=== PATIENT | male | born 1955 | race Caucasian/White ===

== ENCOUNTER 2017-08-13 07:02 | Observation (INO) | payer OTHER ==
[~2017-08-13] VITALS: Ht 177.8 cm; Wt 117.9 kg
[~2017-08-13 07:02] MED LIST: ASPIR 8181 MG PO; IBUPROFEN 800800 M1 PO; KEFLEX500 MG PO; PIOGLITAZONE15 MG PO; PROZAC20 MG PO; UNICOMPLEX M TA1 TA1 PO; VITAMIN B-12500 MCG PO; VITAMIN D2000 UNIT PO
[2017-08-13 07:13] VITALS: BP 174/78
[2017-08-13 07:55] LABS: HEMOGLOBIN 14.7 gm/dL (14.0-18.0); MCH 31.1 pg (26.0-34.0); MCHC 33.4 g/dL (28.0-37.0); MCV 93.3 fL (80.0-100.0); MPV 8.3 fl. (7.2-11.1); NUCLEATED RBCS 0 /100WBC; PLATELET COUNT* 207 thou/uL (150-400); RBC 4.71 mil/uL (4.50-6.00); RDW-CV 12.9 % (10.5-14.5); WBC 13.8 thou/uL (4.0-11.0)
[2017-08-13 08:00] LABS: ANION GAP 12 mmol/L (7-16); BUN 10 mg/dL (7-18); CALCIUM 8.7 mg/dL (8.5-10.1); CHLORIDE 102 mmol/L (98-107); CO2 25 mmol/L (21-32); CREATININE 0.8 mg/dL (0.6-1.3); GLUCOSE 195 mg/dL (70-99); POTASSIUM 3.7 mmol/L (3.5-5.1); SODIUM 139 mmol/L (136-145)
[2017-08-13 08:07] LABS: ALBUMIN 4.1 g/dL (3.4-5.0); ALKALINE PHOSPHATASE 80 U/L (46-116); LIPASE 86 U/L (73-393); SGOT 26 U/L (15-37); SGPT 41 U/L (30-65); TOTAL BILIRUBIN 0.5 mg/dL (<0.1-1.0); TOTAL PROTEIN 7.8 g/dL (6.4-8.2); TROPONIN-I LEVEL <0.06 ng/mL (<0.06)
[2017-08-13 08:31] LABS: ABSOLUTE LYMPHOCYTES 0.6 thou/uL (0.8-5.3); ABSOLUTE MONOCYTES 0.4 thou/uL (0.0-1.2); ABSOLUTE NEUTROPHILS 12.8 thou/uL (1.6-8.1); ANISOCYTOSIS 1+; PLATELET ESTIMATE ADEQUATE
[2017-08-13 08:32] LABS: POIKILOCYTOSIS 1+
[2017-08-13 09:20] LABS: URINE BILIRUBIN NEGATIVE (Negative); URINE BLOOD NEGATIVE (Negative); URINE CLARITY CLEAR; URINE COLOR YELLOW; URINE GLUCOSE-RANDOM 1+ (Negative); URINE KETONES NEGATIVE (Negative); URINE LEUKOCYTES-REFLEX NEGATIVE (Negative); URINE NITRITE-REFLEX NEGATIVE (Negative); URINE PROTEIN NEGATIVE (Negative); URINE SPECIFIC GRAVITY <= 1.005 (1.005-1.030); URINE UROBILINOGEN 0.2 E.U./dl (0.2-1.0)
[2017-08-13 12:10] VITALS: BP 155/80
[2017-08-13 12:35] VITALS: BP 152/84
[2017-08-13 14:22] VITALS: BP 152/84
--- NOTE | 2017-08-13 14:55 | EKG ---
[place] [address] ELECTROCARDIOGRAM REPORT Name: BRNEDA ROMEO Room: [address] IN .R.#: [id number] Admission: 08/13/17 Attend Phys: Regulo Rice, Discharge: Date of : 53 Report #: [id number] THIS REPORT FOR: //name// [facility] ED Test Date: 2017-08-13 Test Time: 08:00:44 Pat Name: BRENDA ROMEO Department: Room: Gender: Cardiac Technologist: Oz MANDUJANO : 1955 Requested By: Lion Rosario Order Number: [id number] MD: Osman Cooper Measurements Intervals [place] Rate: 62 P: 49 IA: 181 QRS: 65 QRSD: 106 T: 34 QT: 416 QTc: 423 Interpretive Statements Sinus rhythm No previous ECG available for comparison Electronically Signed On 08-13-2017 14:55:22 CDT by Osman Cooper [email or web address] <ELECTRONICALLY SIGNED> By: Osman Cooper MD, [facility] 08/13/17 1455 0800 08 Osman Cooper MD, FACC /EPI
--- NOTE | 2017-08-13 18:28 | NUR ---
ASSUMED CARE OF PATIENT AFTER TRANSFER FROM ED AT 1230. ALERT AND ORIENTED X4. ASSESSMENT COMPLETED AND CHARTED. VSS ON ROOM AIR. PATIENT HAS NO COMPLAINTS OF NAUSEA OR SOA. PATIENTS PAIN HAS BEEN MINIMAL AND DID NOT REQUIRE MEDICATION ON THIS UNIT. PATIENT LEFT FOR LAP RUY PROCEDURE AT 1440 AND RETURNED TO THE UNIT AT 1810. PATIENT IS ALERT AND ORIENTED X4 AND VSS ON ROOM AIR. PATIENT IS HAVING NO COMPLAINTS OF PAIN AT THIS TIME. RESTING COMFORTABLY IN BED AND A CLEAR LIQUID DINNER TRAY WAS DELIEVERED. CALL LIGHT IS WITHIN RECH AND NURSING WILL CONTINUE TO MONITOR.
[2017-08-13 20:20] VITALS: BP 110/69
[2017-08-13 23:46] VITALS: BP 132/71
[2017-08-14 03:37] VITALS: BP 134/68
[2017-08-14 03:52] LABS: HEMATOCRIT 38.4 % (42.0-52.0); MCH 30.7 pg (26.0-34.0); MPV 8.3 fl. (7.2-11.1); RBC 4.13 mil/uL (4.50-6.00); RDW-CV 12.8 % (10.5-14.5); WBC 11.1 thou/uL (4.0-11.0)
[2017-08-14 03:55] LABS: HEMOGLOBIN 12.7 gm/dL (14.0-18.0)
[2017-08-14 04:30] LABS: ALBUMIN 3.3 g/dL (3.4-5.0); CREATININE 0.7 mg/dL (0.6-1.3); POTASSIUM 4.1 mmol/L (3.5-5.1); TOTAL BILIRUBIN 0.6 mg/dL (<0.1-1.0); TOTAL PROTEIN 6.3 g/dL (6.4-8.2)
--- NOTE | 2017-08-14 05:17 | NUR ---
PATIENT ALERT AND ORIENTED X 4. VITALS STABLE. RA. CPAP AT HS, CONTINUOUS PULSE OX IN PLACE. RA. DENIES PAIN AND NAUSEA. TOLERATING CLEAR LIQUID DIET. WILL BE ADVANCED TO LOW FAT CARB CONTROL FOR BREAKFAST PER ORDER. FLUIDS INFUSING PER ORDER. VOIDING ADEQUATELY. UP INDEPENDENTLY. LAP SITES X 5. ONE SITE COVERED WITH A BANDAGE DUE TO SMALL AMOUNT OF DRAINAGE. OTHER SITES C/D/I. HOURLY ROUNDS. BED ALARM IN USE. NURSING WILL CONTINUE TO MONITOR.
[2017-08-14 08:15] VITALS: BP 133/65
[2017-08-14 13:34] VITALS: BP 133/65
[2017-08-14] MEDS ORDERED: HYDROCODON-ACE1 EAC7 PO (13:47)
[2017-08-14] MEDS ORDERED: PROTONIX40 M1 PO (13:49)
--- NOTE | 2017-08-14 14:26 | NUR ---
PATIENT DISCHARGED FROM UNIT AT 1415. ALERT AND ORIENTED X 4. VITAL SIGNS STABLE ON ROOM AIR. UP AD IAN. IV DISCONTINUED. DISCHARGE INSTRUCTIONS, MEDICATION INFORMATION, ANS SCRIPTS GIVEN TO PATIENT. LEFT WITH ALL BELONGINGS. PATIENT LEFT WITH VIA CAR.
[2017-08-14 14:36] VITALS: BP 133/65
--- NOTE | 2017-08-20 13:09 | CON ---
[address] [address] CONSULTATION Name: BRENDA ROMEO Room: [address] Noe Gutierrez#: [id number] Admission: 08/13/17 Attend Phys: Regulo Rice, Discharge: 08/14/17 Date of : 53 Report #: [id number] THIS REPORT FOR: //name// CC: Heath Rice DATE OF SERVICE: 08/13/2017 REASON FOR CONSULTATION: Cholecystitis. HISTORY OF PRESENT ILLNESS: This is a 62-year-old male with acute abdominal pain, which started at 10 p.m. last night. The patient reports that he ate a late dinner around 7:30 p.m. last night and by 10:00, he was having severe pain in the right upper quadrant, which was radiating to the mid abdominal region. He also started having dry heaving, which lasted until 4:30 a.m. The patient reports that he decided to come to the hospital as his pain was not resolving. He denies any lower GI symptoms as he denies hematochezia, melena, change in stool habits and caliber. He has had a recent colonoscopy within a year, which was significant for polyps. PAST MEDICAL HISTORY: Significant for history of open fracture of distal phalanx of the toe, obesity, depression, vitamin D deficiency, uvulectomy, left knee replacement, tonsillectomy, diabetes mellitus, C6 and C7 fusion. ALLERGIES: No known drug allergies. MEDICATIONS: Please refer to hospital MAR. SOCIAL HISTORY: The patient lives at home. He denies tobacco or alcohol use. FAMILY HISTORY: Negative for GI malignancy. PHYSICAL EXAMINATION: VITAL SIGNS: Reveals normal vitals. LUNGS: Clear. CARDIOVASCULAR: Regular. ABDOMEN: Soft, tender to palpation in the right upper quadrant. Bowel sounds are positive. Doyle sign is positive as well. NEUROLOGIC: The patient is alert and oriented x 3. There is no focal neurologic deficit. LABORATORY DATA: Reveal sodium of 139, potassium 3.7, BUN is 10, creatinine 0.8, glucose is 195. AST is 26, ALT 41, alkaline phosphatase 80, total bilirubin is 0.5. WBC is 13.8 with hemoglobin of 14.7 and platelet of 207. IMAGING: CT and abdominal ultrasound was obtained. [place] [address] CONSULTATION Name: BRENDA ROMEO Room: [address] Noe Gutierrez#: [id number] Admission: 08/13/17 Attend Phys: Regulo Rice, Discharge: 08/14/17 Date of : 53 Report #: [id number] distended gallbladder with small stones. There is a positive Doyle sign. The patient also has a common bile duct measuring 7 mm. There is no obvious filling defect in the common bile duct. ASSESSMENT AND PLAN: The patient with acute cholecystitis and gallbladder disease who has mildly dilated common bile duct, but no evidence of choledocholithiasis and all LFTs are within normal limits. He has been evaluated by surgery and is scheduled for surgery this afternoon. We will recommend intraoperative cholangiography during the surgery. If there is any evidence of choledocholithiasis, we will consider ERCP. <ELECTRONICALLY SIGNED> By: Raj Briseno MD 08/20/17 1309 1407 10Raj Briseno MD /nt
--- NOTE | 2017-09-03 22:20 | OP ---
[address] [address] OPERATIVE REPORT Name: BRENDA ROMEO Room: [address] Noe Gutierrez#: [id number] Admission: 08/13/17 Attend Phys: Regulo Rice, Discharge: 08/14/17 Date of : 53 Report #: [id number] THIS REPORT FOR: //name// CC: Heath Rice DICTATED BY: Summer Caruso DO DATE OF SERVICE: 08/13/2017 PREOPERATIVE DIAGNOSIS: Cholelithiasis and acute cholecystitis. POSTOPERATIVE DIAGNOSIS: Cholelithiasis and acute cholecystitis. PROCEDURE: Laparoscopic cholecystectomy. SURGEON: Summer Caruso, PGY5 SUPERVISING SURGEON: Monae Echeverria MD ZIGZAG MACHINE OPERATOR: None. ANESTHESIA: General endotracheal. ESTIMATED BLOOD LOSS: 50 mL. SPECIMENS: Gallbladder. COMPLICATIONS: None. DISPOSITION: PACU to floor. OPERATIVE DETAILS: After obtaining proper informed consent, the patient was brought to the operating room and laid supine on the operating table. He was given preoperative antibiotics and sedated and intubated with the benefit of general anesthesia. Abdomen was then prepped and draped in the usual sterile fashion and timeout was performed. Supraumbilical incision was made and dissection of subcutaneous tissue was carried out to the level of fascia with S retractors. Nicking incision was made in the fascia and this was grasped with 2 Ciro clamps and elevated. Peritoneum was entered bluntly with the use of a hemostat. Finger was placed in abdomen and peritoneum was swept and found to be free of adhesions. A 0 Vicryl suture was placed on either side of the fascia and Raquel trocar was placed in the abdomen. Abdomen was then insufflated and the patient was placed head up and rolled to the left. Gallbladder was quite distended and inflamed. A 12 mm trocar was placed in subxiphoid position followed by two 5 mm trocars in the right [place] [address] OPERATIVE REPORT Name: BRENDA ROMEO Room: [address] Noe Gutierrez#: [id number] Admission: 08/13/17 Attend Phys: Regulo Rice, Discharge: 08/14/17 Date of : 53 Report #: [id number] visualization. Adhesions were carefully taken down with blunt and cautery dissection until we could grasp the gallbladder. This was retracted cephalad over the liver and again continued to take down the omental adhesions carefully off the anterior wall of the gallbladder. We did require an additional 5 mm trocar placement for placement of fan retractor to . Once we had completely taken down these adhesions, we were able to grasp Baldo's pouch and peritoneum overlying this was dissected with the use of cautery. We then very carefully proceeded with blunt dissection to dissect free our cystic duct and cystic artery obtaining our critical view. Three clips were placed proximally and 2 distally in the cystic duct and 2 proximal and 1 distal in the cystic artery. These were ligated with endoscopic scissors. Gallbladder was dissected free of the liver bed with the use of cautery. It was placed in an EndoCatch bag. Liver bed was again inspected and hemostasis was assured with cautery. Right upper quadrant was irrigated and irrigation fluid was suctioned free. Gallbladder was brought out through subxiphoid position. We did have to extend this incision slightly and is sent to pathology for further evaluation. A 0 Vicryl was placed transfascially under direct visualization with a PMI closure device in the subxiphoid position with good approximation. Abdomen was then desufflated and trocars were removed under direct visualization with no evidence of bleeding. A myamxa-ip-sbout 0 Vicryl suture was placed in the fascia of the umbilical incision with good approximation. Local infiltration of 0.5% Marcaine was injected around all incisions, totalling 30 mL. Skin was closed with 4-0 Monocryl followed by Mastisol, followed by EpiFix. All counts were correct at the end of the case. Drapes removed and the patient was awoken and extubated and brought to PACU in good condition for further recovery. Dr. Monae Echeverria was present and scrubbed for the entire procedure. <ELECTRONICALLY SIGNED> By: Monae Echeverria MD 09/03/17 2220 1407 1556Darcy Junie Echeverria MD /nt
== END 2017-08-14 14:15 | disposition home or self-care (01) ==
LOC: M.ERS 07:02 → M.TBA-ER 10:22 → M.ORTHSURG 10:22
PROVIDERS: Emergency Medicine; Surgery; ADMIT Family Medicine
PROC: 0FT44ZZ Resection of Gallbladder, Percutaneous Endoscopic Approach (ICD-10-PCS; principal; 2017-08-13)
PROC: 0FT44ZZ Resection of Gallbladder, Percutaneous Endoscopic Approach (ICD-10-PCS; 2017-08-13)
DX: K80.00 Calculus of gallbladder with acute cholecystitis without obstruction (principal); E11.9 Type 2 diabetes mellitus without complications; F32.9 Major depressive disorder, single episode, unspecified; K83.8 Other specified diseases of biliary tract; K82.8 Other specified diseases of gallbladder; E66.01 Morbid (severe) obesity due to excess calories; I10 Essential (primary) hypertension; M19.90 Unspecified osteoarthritis, unspecified site; G47.33 Obstructive sleep apnea (adult) (pediatric); Z90.49 Acquired absence of other specified parts of digestive tract; Z98.1 Arthrodesis status; Z96.652 Presence of left artificial knee joint; Z79.899 Other long term (current) drug therapy; Z79.82 Long term (current) use of aspirin; Z79.1 Long term (current) use of non-steroidal anti-inflammatories (NSAID); Z68.37 Body mass index [BMI] 37.0-37.9, adult

== ENCOUNTER 2019-10-11 10:42 | Emergency (ER) | payer MEDICARE ==
[~2019-10-11] VITALS: Ht 177.8 cm; Wt 109.8 kg
[~2019-10-11 10:42] MED LIST changes: +HYDROCODON-ACE1 EAC7 PO; +PROTONIX40 M1 PO
[2019-10-11] MEDS ORDERED: COZAAR 25 MG TA25 M1 PO (10:55)
[2019-10-11] MEDS ORDERED: METFORMIN HCL500 M3 PO (10:55)
[2019-10-11] MEDS ORDERED: LIPITOR10 MG PO (10:55)
[2019-10-11 11:10] LABS: ABSOLUTE EOSINOPHILS 0.2 thou/uL (0.0-0.7); ABSOLUTE LYMPHOCYTES 1.9 thou/uL (0.8-5.3); ABSOLUTE MONOCYTES 0.7 thou/uL (0.0-1.2); BASOPHILS 0.3 %; HEMOGLOBIN 14.7 gm/dL (14.0-18.0); LYMPHOCYTES 24.3 %; MCH 32.2 pg (26.0-34.0); MCHC 34.9 g/dL (28.0-37.0); MCV 92.2 fL (80.0-100.0); MONOCYTES 8.8 %; MPV 7.6 fl. (7.2-11.1); NUCLEATED RBCS 0 /100WBC; PLATELET COUNT* 252 thou/uL (150-400); POLYS 64.6 %; RBC 4.56 mil/uL (4.50-6.00); RDW-CV 12.6 % (10.5-14.5); WBC 7.8 thou/uL (4.0-11.0)
[2019-10-11 11:11] LABS: URINE BILIRUBIN NEGATIVE (Negative); URINE BLOOD NEGATIVE (Negative); URINE CLARITY CLEAR; URINE COLOR YELLOW; URINE GLUCOSE-RANDOM NEGATIVE (Negative); URINE KETONES NEGATIVE (Negative); URINE LEUKOCYTES-REFLEX NEGATIVE (Negative); URINE NITRITE-REFLEX NEGATIVE (Negative); URINE PROTEIN NEGATIVE (Negative); URINE SPECIFIC GRAVITY 1.015 (1.005-1.030); URINE UROBILINOGEN 0.2 E.U./dl (0.2-1.0)
[2019-10-11 11:22] LABS: CALCIUM 8.8 mg/dL (8.5-10.1); CREATININE 0.7 mg/dL (0.6-1.3); POTASSIUM 3.9 mmol/L (3.5-5.1)
[2019-10-11 11:26] LABS: TOTAL BILIRUBIN 0.5 mg/dL (<0.1-1.0); TOTAL PROTEIN 7.7 g/dL (6.4-8.2)
[2019-10-11 13:25] VITALS: BP 147/69
--- NOTE | 2019-10-11 13:44 | EKG ---
[place] [address] ELECTROCARDIOGRAM REPORT Name: BRENDA ROMEO Room: [facility]#: [id number] Admission: 10/11/19 Attend Phys: Discharge: 10/11/19 Date of : 53 Date of Service: 10/11/19 1101 Report #: [id number] THIS REPORT FOR: //name// [facility] ED Test Date: 2019-10-11 Test Time: 11:01:10 Pat Name: BRENDA ROMEO Department: Room: Gender: Booking Agent: : 1955 Requested By: Lion Rosario Order Number: [id number] MD: Osman Cooper Measurements Intervals [place] Rate: 56 P: 70 [place]: 192 QRS: 67 QRSD: 105 T: 54 QT: 408 QTc: 394 Interpretive Statements Sinus bradycardia Baseline wander in lead(s) V3 Compared to ECG 08/13/2017 08:00:44 No significant changes Electronically Signed On 10-11-2019 13:43:52 CDT by Osman Cooper [email or web address] <ELECTRONICALLY SIGNED> By: Osman Cooper MD, [facility] 10/11/19 1343 1101 1101 Osman Cooper MD, [facility] /EPI
== END 2019-10-11 13:26 | disposition home or self-care (01) ==
LOC: M.ERS 10:42
PROVIDERS: Emergency Medicine
DX: K42.9 Umbilical hernia without obstruction or gangrene (principal); Z79.82 Long term (current) use of aspirin; Z90.89 Acquired absence of other organs; Z79.899 Other long term (current) drug therapy; Z96.652 Presence of left artificial knee joint

== ENCOUNTER → 2019-10-27 | Day surgery (SDC) | payer MEDICARE ==
[~2019-10-27] MED LIST changes: +ALPRAZOLAM 0.50.5 MG PO; +COZAAR 25 MG TA25 M1 PO; +LIPITOR10 MG PO; +METFORMIN HCL500 M3 PO; +ROXICODONE5 M2 PO
--- NOTE | ~2019-10-27 | OP ---
[address] [address] OPERATIVE REPORT Name: BRENDA ROMEO Room: [facility].#: [id number] Admission: 10/27/19 Attend Phys: Bijan Blount DO Discharge: Date of : 53 Report #: [id number] THIS REPORT FOR: //name// cc: Fercho Tello [place] R. DO ~ THIS REPORT FOR: //name// CC: Bijan Tello DO DATE OF SERVICE: 10/27/2019 REFERRING PHYSICIAN: Fercho Tello MD PREOPERATIVE DIAGNOSES: Bilateral inguinal hernias, umbilical hernia. POSTOPERATIVE DIAGNOSES: Bilateral inguinal hernias with left being larger than the right, umbilical hernia. PROCEDURE: Da Briana robotic-assisted laparoscopic bilateral inguinal hernia repair with mesh and excision of bilateral cord lipomas and then umbilical hernia repair as well. SURGEON: Bijan Blount DO QI SPECIALIST: Rui Hodge DO, PGY1 resident. SECOND LOIN PULLER: Student, Dr. Zi Zapata, MS4 ANESTHESIA: General endotracheal and TAP blocks. ESTIMATED BLOOD LOSS: Less than 30 mL. COMPLICATIONS: None. DESCRIPTION OF PROCEDURE: After obtaining proper consents and discussing risks and complications with the patient, he was taken to the operating room, laid in the supine position, administered general endotracheal anesthetic. He was then prepped and draped in the usual sterile fashion. A timeout was performed. We confirmed the appropriate patient and procedure. Preoperative antibiotics had been given. SCDs were in place. We then made a small supraumbilical skin incision with #11 scalpel blade. This was carried down through the skin into the subcutaneous tissue using electrocautery for hemostasis. Once within the subcutaneous tissue, we identified the umbilical hernia which was dissected free and the hernia sac was from the umbilical stalk[place] [address] OPERATIVE REPORT Name: BRENDA ROMEO Room: [facility].#: [id number] Admission: 10/27/19 Attend Phys: Bijan Blount, DO Discharge: Date of : 53 Report #: [id number] hernia sac, which was passed off as specimen. We then placed a finger within the peritoneal cavity. I then placed two 0 Prolene sutures in a rdrbbk-ag-pwyzn fashion to secure the da Briana camera port, which was then inserted. Once the camera port was inserted, insufflation was begun. Once insufflation was complete, full visual inspection of the anterior abdominal organs was performed. This revealed a larger indirect inguinal hernia on the left and a somewhat smaller one on the right. We elected to proceed and place two more 8.5 mm da Briana ports, one in the right upper quadrant, one in the left upper quadrant. I then placed monopolar scissors in the right upper quadrant and a bipolar fenestrated grasper in the left upper quadrant. I then broke scrub and went on console. Once on console, I was able to open the peritoneum from the median umbilical ligament laterally to the ASIS beginning on the left. I then dissected the preperitoneal space down starting medially and going all the way down to the pubic ramus. I then continued the dissection laterally along the spermatic cord. The hernia sac was dissected back and then I continued the dissection laterally all the way up to the ASIS. I then identified a very large cord lipoma. This cord lipoma was reduced back with some difficulty and also using bimanual palpation with my bedside assistant professor of radiology, pushing on the scrotum in order to reduce this back, I was then able to grasp and elevate the cord lipoma and used electrocautery to completely remove it. It was then placed into the peritoneal cavity for removal later. I then turned my attention to the patient's right side where a similar peritoneal opening was made from the median umbilical ligament laterally to the ASIS. I then dissected the preperitoneal space down using blunt dissection as well as electrocautery to maintain hemostasis in the wound. The dissection was carried all the way down to the pubic ramus and 2 cm below that. I then continued the dissection laterally along the spermatic cord and dissected the peritoneum and hernia sac free of the spermatic cord and cord structures. I then continued the dissection laterally all the way out to the ASIS. We then identified another cord lipoma. This one was considerably smaller on the right side than the left side. This cord lipoma was completely removed and placed into the peritoneum for removal later. I then inserted a right and left Bard 3DMax mesh, which was placed into the preperitoneal space. I then sutured the mesh on both sides medially at Vish's ligament and then medial and lateral to the inferior epigastric vessels using 2-0 Vicryl suture. The peritoneal flaps were then closed using running 2-0 absorbable V-Loc suture. Once this was all completed, I then returned to the patient's bedside where we undocked the da Briana robot and removed all of the trocars. I then used a PMI closure device for the right upper quadrant trocar site. We then removed the camera trocar and closed the umbilical hernia defect using the two previously placed 0 Prolene sutures plus two additional 0 Prolene sutures. Skin incisions were all closed using 4-0 Monocryl subcuticular [facility] [address] [place] [address] OPERATIVE REPORT Name: AGUEDABRENDA WALLACE [id number] Admission: 10/27/19 Attend Phys: Bijan Blount DO Discharge: Date of : 53 Report #: [id number] stitches. Dermabond was then placed. The patient was then awakened in the operating room and transported to recovery room in stable condition. By: 1316 1329Aamy Blount DO /nt
[2019-10-27 12:21] LABS: HEMOGLOBIN 13.9 gm/dL (14.0-18.0); MCHC 34.6 g/dL (28.0-37.0); MCV 92.5 fL (80.0-100.0); MPV 8.1 fl. (7.2-11.1); RBC 4.33 mil/uL (4.50-6.00); RDW-CV 12.4 % (10.5-14.5); WBC 7.7 thou/uL (4.0-11.0)
[2019-10-27 12:31] LABS: CALCIUM 8.3 mg/dL (8.5-10.1); CREATININE 0.8 mg/dL (0.6-1.3)
--- NOTE | 2019-10-31 13:08 | PATH ---
[address] [address] PATHOLOGY RPT PROCEDURE Name: BULL ROMEO Room: [facility].#: [id number] Admission: 10/27/19 Date of : 53 Discharge: Report #: [id number] Path Case #: [id number] [facility] Accession Number: [id number] . 01 Material submitted: . hernia - RIGHT AND LEFT CORD LIPOMA. Modifiers: bilateral . 01 Clinical history: . Inguinal hernias, umbilical hernia. . 02 Diagnosis: Left and right cord lipoma: - Multiple fragments of mature fat consistent with cord lipomas, with focal chronic inflammation. ([facility]/db; 10/30/2019) [facility] 10/30/2019 1753 Local . 02 Electronically signed: . Lucas Blue MD, Pathologist NPI- [id number] . 01 Gross description: . Received in formalin labeled "Sanjeev, Bull, left and right cord lipoma" is a 17.1 x 10.5 x 3.5 cm aggregate of yellow-garza lobulated fibroadipose tissue. Upon sectioning, the cut surfaces are homogeneous and yellow-garza without hemorrhage or necrosis. Ambulatory Care tissue is submitted in cassettes A1-A8. ([facility]; 10/29/2019) [facility] 10/29/2019 1220 Local . 02 Pathologist provided ICD-10: D17.6 . 02 CPT . 569620 Specimen Comment: A courtesy copy of this report has been sent to [phone] Specimen Comment: [phone] Specimen Comment: Report sent to Specimen Comment: Report sent to / DR NOBLE Performed at: 01 [facility] [address] [place] [address] [address], [place] [id number] MD True [place] MD Phone: [phone] Performed at: [address] [facility] [address] [place], [place] [id number] MD Lucas Blue MD Phone: [phone]
== END | disposition home or self-care (01) ==
LOC: M.SUR 10:02
PROVIDERS: ATTEND Surgery
DX: K40.20 Bilateral inguinal hernia, without obstruction or gangrene, not specified as recurrent (principal); K42.9 Umbilical hernia without obstruction or gangrene; Z11.59 Encounter for screening for other viral diseases; Z79.899 Other long term (current) drug therapy; Z98.890 Other specified postprocedural states